=== PATIENT | female | born 1995 | race African-American/Black ===

== ENCOUNTER 2017-07-26 21:21 | Emergency (ER) | payer OTHER ==
[~2017-07-26] VITALS: Ht 162.6 cm; Wt 54.4 kg
[~2017-07-26 21:21] MED LIST: ACETAMINOPHEN500 M1 PO; BACTRIM DS TAB1 EACH PO; DOXYCYCLINE 10100 MG PO; IBUPROFEN 600600 M1 PO; MOBIC15 MG PO; NOHOMEMEDICATIONS; NORCO 5-325 TA1 EACH PO
[2017-07-26] MEDS ORDERED: CEFDINIR300 MG PO (22:35)
[2017-07-26] MEDS ORDERED: TRAMADOL 50 MG50 MG PO (22:35)
== END 2017-07-26 22:51 | disposition home or self-care (01) ==
LOC: ER 21:21
DX: R59.1 Generalized enlarged lymph nodes (principal); H66.90 Otitis media, unspecified, unspecified ear; J45.909 Unspecified asthma, uncomplicated

== ENCOUNTER 2017-10-11 10:26 | Emergency (ER) | payer OTHER ==
[~2017-10-11] VITALS: Ht 162.6 cm; Wt 54.4 kg
[~2017-10-11 10:26] MED LIST changes: +CEFDINIR300 MG PO; +TRAMADOL 50 MG50 MG PO
[2017-10-11 10:32] VITALS: BP 118/69
[2017-10-11] MEDS ORDERED: ACCUNEB SO1.25 MG/1 INH (10:33)
[2017-10-11] MEDS ORDERED: MUCINEX D ER 11 EACH PO (11:06)
[2017-10-11] MEDS ORDERED: PROMETHAZINE/C118 ML PO (11:06)
== END 2017-10-11 12:13 | disposition home or self-care (01) ==
LOC: ER 10:26
DX: J06.9 Acute upper respiratory infection, unspecified (principal); J45.909 Unspecified asthma, uncomplicated